=== PATIENT | male | born 1990 | race Caucasian/White ===

== ENCOUNTER 2017-07-30 20:52 | Emergency (ER) | payer OTHER ==
[~2017-07-30] VITALS: Ht 167.6 cm; Wt 65.0 kg
[2017-07-30 20:59] VITALS: Ht 167.6 cm; Wt 65.0 kg
--- NOTE | 2017-07-30 21:07 | ERD ---
ER Documentation Chief Complaint Chief Complaint lab draw in police custody HPI Patient is a 27-year-old male in police custody for driving under the influence who is brought to the ER for a legal blood draw. There is no complaint from the patient and there was no accident or trauma.The patient acknowledges drinking alcohol today, but denies any drug use today. He denies taking any medications. He has no complaints at this time. ROS All systems reviewed and are negative except as per history of present illness. PMhx/Soc Past medical history: None Past surgical history: None Social history: Drinks alcohol, smokes occasional marijuana Physical Exam Vitals Vital Signs Date Time Temp Pulse Resp B/P Pulse Ox O2 Delivery O2 Flow Rate FiO2 07/30/17 20:59 98.2 73 15 120/78 99 Physical Exam Const: Alert, no acute distress Head: Atraumatic Eyes: Normal Conjunctiva, No pallor, no icterus, no nystagmus ENT: Normal External Ears, Nose and Mouth. Mucous membranes moist Neck: Full range of motion. No midline tenderness Resp: Clear to auscultation bilaterally, No wheezes, no rales Cardio: Regular rate and rhythm, no murmurs Abd: Soft, non tender, non distended. Skin: No petechiae or rashes Ext: No cyanosis, or edema Neur: Awake and alert, Cranial nerves II through XII intact bilaterally, strength and sensation grossly intact in 4 extremities Psych: Normal Mood and Affect Procedures/MDM MDM: Patient is a 27-year-old male brought to the ER for legal blood draw due to arrest for DUI. There is no accident and the patient has no medical complaints. He has a normal exam and vital signs. Legal blood draw was performed in the ER. He is cleared for booking. Departure Diagnosis: Primary Impression: Medical clearance for incarceration Condition: JAREN Faye MD Jul 30, 2017 21:07
== END 2017-07-30 21:20 | disposition home or self-care (01) ==
LOC: E/R 20:52
DX: Z02.89 Encounter for other administrative examinations (principal)
CPT/HCPCS: 99283